=== PATIENT | female | born 1995 | race Caucasian/White ===

== ENCOUNTER 2017-02-22 06:05 | Emergency (ER) | payer OTHER ==
[~2017-02-22] VITALS: Ht 160 cm; Wt 81.6 kg
[2017-02-22] MEDS ORDERED: ONDANSETRON PF 4 MG/2 ML VIAL. ONE (06:29)
[2017-02-22] MEDS ORDERED: IV NORMAL SALINE 50ML 50 ML ONE (06:44)
[2017-02-22] MEDS ORDERED: cefTRIAXone SODIUM 1 GM VIAL IV ONE (06:44)
[2017-02-22] MEDS ORDERED: ONDANSETRON PF 4 MG/2 ML VIAL. IV ONE (06:45)
[2017-02-22] MEDS ORDERED: KETOROLAC 30 MG/ML VIAL. IV ONE (06:45)
--- NOTE | 2017-02-22 06:46 | PHYS DOC ---
General Chief Complaint: ABDOMINAL PAIN Stated Complaint: ABD PAIN Time Seen by MD: 06:15 Source: patient Exam Limitations: no limitations Problems: History of Present Illness Initial Comments Patient is a 21-year-old female who comes to the ED complaining of severe left flank and abdominal pain. Patient states that approximately 3 hours ago she was awakened from sleep with severe left flank pain and the urge to urinate. She's had urinary hesitancy and some dysuria with severe left-sided flank pain now radiating to her left lower quadrant. She's had some nausea and vomiting no diarrhea no fever chills or myalgias. She's currently menstruating and denies any travel or bad food exposure she is writhing in pain unable to achieve a position of comfort. Pain is described as sharp and crampy and intermittent no exacerbating or relieving factors have been noted. No pre-arrival treatment only surgical history wisdom teeth and she states she is normally healthy denies any daily medications. ED vital signs are stable with mild blood pressure elevation physiologic response to pain. Timing/Duration: 4-6 hours Severity: severe Modifying Factors: improves with other Associated Symptoms: nausea/vomiting, other Allergies: Coded Allergies: Sulfa (Sulfonamide Antibiotics) (Verified Allergy, Unknown, 02/22/17) Past Medical History Medical History: no pertinent history Surgical History: noncontributory LMP (Females 10-50): current Review of Systems Constitutional: denies chills, diaphoresis, denies fever, malaise Respiratory: denies cough, denies shortness of breath, denies wheezing Cardiovascular: denies chest pain, denies palpitations, denies syncope Gastrointestinal: see HPI Genitourinary: see HPI Musculoskeletal: see HPI, denies joint swelling, denies neck pain Psychiatric/Neurological: denies headache, denies numbness, denies paresthesia Physical Exam General Appearance: WD/WN, moderate distress Eyes: bilateral eye normal inspection, bilateral eye PERRL, bilateral eye EOMI Ear, Nose, Throat: hearing grossly normal, normal ENT inspection Neck: non-tender, supple Respiratory: normal breath sounds, no respiratory distress Cardiovascular: normal peripheral pulses, regular rate, rhythm Orders, Labs, Meds PATIENT: IZABEL ZHAO ACCOUNT: [id number] : 1995 LOCATION: ER AGE: 21 SEX: F EXAM STATUS: PRE ER ORD. PHYSICIAN: KAR WAN DO REASON: L flank pain r/o stone vs other PROCEDURE: CT ABDOMEN PELVIS WO CONTRAST Exam performed: CT scan of the abdomen and pelvis without contrast. Clinical Indication: Left flank pain for one day. Date of Service: 02/22/2017 . Comparison: None available Technique: Contiguous helical acquisitions are obtained through the abdomen and pelvis without oral or IV contrast. Sagittal and coronal reformatted images are obtained and reviewed. CT abdomen findings: 2-3 mm nonobstructing calculus in the midpole of the right kidney. Mild left hydronephrosis and dilation of the left ureter is seen throughout terminating in a approximately 4.5 mm calculus at the left vesicoureteral junction. There is no perinephric or periureteric inflammatory stranding. The lung bases are essentially clear. The visualized heart is normal. Lack of IV contrast limits evaluation of abdominal viscera, however the liver, spleen, pancreas and gallbladder appear normal. Both adrenal glands and bilateral kidneys are normal in size. Aorta is normal in caliber. No retroperitoneal or mesenteric lymphadenopathy. Small and large bowel loops are nondilated and unremarkable. Visualized appendix is normal. No inflammatory changes seen in the right lower quadrant CT pelvis findings: The pelvic bowel loops are nondilated and unremarkable. The urinary bladder is decompressed. The uterus is anteverted and normal. No adnexal masses. Scattered stool throughout the colon No fluid collections or pelvic lymphadenopathy. Bones are unremarkable. Impression: 4.5 mm calculus at the distal left ureter at the vesicoureteral junction causing mild proximal hydroureteronephrosis. Approximately 2 to 3 mm nonobstructing right midpole calculus PQRS Compliance Statement: One or more of the following individualized dose reduction techniques were utilized for this examination: 1. Automated exposure control 2. Adjustment of the mA and/or kV according to patient size 3. Use of iterative reconstruction technique Electronically signed by: Nataliia Armendariz MD (02/22/2017 7:20 AM) [facility] DICTATED AND SIGNED BY: NATALIIA ARMENDARIZ MD DATE: 02/22/17 0715 CC: KAR WAN DO ~ 0800: CBC unremarkable, potassium 3.4, 20 mEq of potassium given by mouth. Initial urine specimen to low volume apparently for microscopic evaluation and as a trace leukocyte esterase noted with hydronephrosis and new specimen is obtained. Patient will have prolonged ED course due to the need for new urine evaluation. I rechecked her symptoms she is feeling much better just feels foggy and drugged up. No more nausea pain is rated at its worst currently at 2 out of 10. 0924: Urine recheck revealed no evidence of infection. I discussed treatment options with the patient initially including transfer to a facility with urology staffing for trial of symptomatic control with by mouth meds at home. The patient is refusing inpatient treatment initially, she received Percocet 10 mg, Zofran ODT 4 mg, and Flomax approximately 30 minutes ago. She is currently feeling a little worse, pain is 6 out of 10. She would like to given another 30 minutes to see if the Percocet will take effect before agreeing to transfer for inpatient urologic evaluation. 1004: Patient rechecked she reports that her pain is 2 out of 10 and that the medication is working. She is requesting discharge home. Departure Time of Disposition: 10:07 Disposition: 01 HOME, SELF-CARE Diagnosis: 4.5mm L ureterolithiasis with hydronephrosis Condition: STABLE Patient Instructions: Diet for Kidney Stones, Kidney Stones, [id number] Additional Instructions: Work/school excuse until cleared by your doctor. Aggressive hydration with Gatorade or water. Strain urine and take any sediment collected to urology appointment. Prescriptions: Percocet 10 mg quantity 40, Flomax, Zofran ODT, Cipro Take medications with food to avoid abdominal discomfort, nausea and vomiting. No driving or operating machinery while taking pain medications. You will need to follow-up with a urologist. As discussed our facility is not staffed with urology. You may choose to follow up with: [facility] [phone] call Thursday morning to schedule appointment. Follow-up with your doctor in 1-2 days for recheck. Return to ED with new or changing symptoms, we are glad to take care of you here but as discussed if inpatient treatment is required we will have to transfer you to another facility. KAR WAN DO Feb 22, 2017 06:46
[2017-02-22] MEDS: HYDROmorphone PF 1 MG/ML DISP.SYRIN IV/SQ PRN ×2 (06:51→07:19)
[2017-02-22 07:00] LABS: BASO % 1 % (0-3); EOS # 0.1 x10^3/uL (0.0-0.7); EOS % 2 % (0-3); HEMATOCRIT 40.3 % (36.0-47.0); HEMOGLOBIN 14.1 g/dL (12.0-15.5); LYMPH # 2.2 x10^3/uL (1.0-4.8); LYMPH % 30 % (24-48); MEAN CORPUSCULAR HEMOGLOBIN 30 pg (25-35); MEAN CORPUSCULAR HGB CONC 35 g/dL (31-37); MEAN CORPUSCULAR VOLUME 85 fL (79-100); MONO # 0.6 x10^3/uL (0.0-1.1); MONO % 8 % (0-9); NEUT # 4.4 x10^3uL (1.8-7.7); NEUT % 59 % (31-73); PLATELET COUNT 303 x10^3/uL (140-400); RED BLOOD COUNT 4.73 x10^6/uL (3.50-5.40); RED CELL DISTRIBUTION WIDTH 13.1 % (11.5-14.5); WHITE BLOOD COUNT 7.4 x10^3/uL (4.0-11.0)
[2017-02-22 07:00] LABS: BILIRUBIN,URINE NEG (NEG); CLARITY,URINE CLEAR; COLOR,URINE YELLOW; GLUCOSE,URINE NEG (NEG); NITRITE,URINE NEG (NEG); UROBILINOGEN,URINE 0.2 mg/dL (0.2 mg/dL)
[2017-02-22] MEDS ORDERED: IV NORMAL SALINE 1,000ML 1,000 ML IV ONE (07:00)
[2017-02-22 07:03] LABS: CALCIUM 8.9 mg/dL (8.5-10.1); CREATININE 0.8 mg/dL (0.6-1.0); GFR 90.5; POTASSIUM 3.4 mmol/L (3.5-5.1)
--- NOTE | 2017-02-22 07:24 | RAD ---
Exam performed: CT scan of the abdomen and pelvis without contrast. Clinical Indication: Left flank pain for one day. Date of Service: 02/22/2017 . Comparison: None available Technique: Contiguous helical acquisitions are obtained through the abdomen and pelvis without oral or IV contrast. Sagittal and coronal reformatted images are obtained and reviewed. CT abdomen findings: 2-3 mm nonobstructing calculus in the midpole of the right kidney. Mild left hydronephrosis and dilation of the left ureter is seen throughout terminating in a approximately 4.5 mm calculus at the left vesicoureteral junction. There is no perinephric or periureteric inflammatory stranding. The lung bases are essentially clear. The visualized heart is normal. Lack of IV contrast limits evaluation of abdominal viscera, however the liver, spleen, pancreas and gallbladder appear normal. Both adrenal glands and bilateral kidneys are normal in size. Aorta is normal in caliber. No retroperitoneal or mesenteric lymphadenopathy. Small and large bowel loops are nondilated and unremarkable. Visualized appendix is normal. No inflammatory changes seen in the right lower quadrant CT pelvis findings: The pelvic bowel loops are nondilated and unremarkable. The urinary bladder is decompressed. The uterus is anteverted and normal. No adnexal masses. Scattered stool throughout the colon No fluid collections or pelvic lymphadenopathy. Bones are unremarkable. Impression: 4.5 mm calculus at the distal left ureter at the vesicoureteral junction causing mild proximal hydroureteronephrosis. Approximately 2 to 3 mm nonobstructing right midpole calculus PQRS Compliance Statement: One or more of the following individualized dose reduction techniques were utilized for this examination: 1. Automated exposure control 2. Adjustment of the mA and/or kV according to patient size 3. Use of iterative reconstruction technique Electronically signed by: Lauren Armendariz MD (02/22/2017 7:20 AM) [facility]
[2017-02-22 08:02] LABS: BILIRUBIN,URINE NEG (NEG); CLARITY,URINE HAZY; COLOR,URINE YELLOW; GLUCOSE,URINE NEG (NEG); NITRITE,URINE NEG (NEG); UROBILINOGEN,URINE 0.2 mg/dL (0.2 mg/dL)
[2017-02-22 08:03] LABS: AMORPHOUS SEDIMENT,UR PRESENT /HPF; BACTERIA,URINE FEW /HPF (0-FEW); SQUAMOUS EPITHELIAL CELL,UR FEW /LPF; WBC,URINE RARE /HPF (0-4)
[2017-02-22] MEDS ORDERED: POTASSIUM CHLORIDE 20 MEQ/15 ML ORAL LIQUID. PO ONE (08:45)
[2017-02-22] MEDS ORDERED: TAMSULOSIN 0.4 MG CAP.ER.24H. PO ONE (08:45)
[2017-02-22] MEDS ORDERED: oxyCODONE/APAP 10/325 1 TAB TABLET PO ONE (08:45)
[2017-02-22] MEDS ORDERED: ONDANSETRON ODT 4 MG TAB.RAPDIS PO ONE (08:45)
[2017-02-22] MEDS ORDERED: ONDA4TAB10 PO (10:07)
[2017-02-22] MEDS ORDERED: OXYC-328 PO (10:07)
[2017-02-22] MEDS ORDERED: CIPR250T30 PO (10:07)
[2017-02-22] MEDS ORDERED: TAMS0.4C97 PO (10:07)
[2017-02-22 10:30] VITALS: BP 131/80
== END 2017-02-22 10:30 | disposition home or self-care (01) ==
LOC: ER 06:05
DX: N13.2 Hydronephrosis with renal and ureteral calculous obstruction (principal); Z88.2 Allergy status to sulfonamides
CPT/HCPCS: 36415; 74176; 80048; 81001; 81003; 85025; 96365; 96375; 99285; J0696; J1170; J1885; J2405; Q0162; J7030